=== PATIENT | male | born 1990 | race Caucasian/White ===

== ENCOUNTER 2022-07-20 08:28 | Emergency (ER) | payer BC ==
[2022-07-20] MEDS: diphenhydrAMINE 50 MG/ML SDV IVPUSH ONE (08:40)
[2022-07-20] MEDS: methylPREDNISolone Sodium Succinate 125 MG/2 ML SDV IVPUSH SCH (08:45)
[2022-07-20 09:21] VITALS: BP 96/59; PULSE 89
[2022-07-20] MEDS: Sodium Chloride 0.9% 1,000 ML IV SCH (09:30)
== END 2022-07-20 10:32 | disposition home or self-care (01) ==
LOC: CC.ED 08:28
DX: L29.9 Pruritus, unspecified (principal); T36.1X5A Adverse effect of cephalosporins and other beta-lactam antibiotics, initial encounter; Z91.012 Allergy to eggs; Z88.0 Allergy status to penicillin; Z88.1 Allergy status to other antibiotic agents; Z91.048 Other nonmedicinal substance allergy status
CPT/HCPCS: 96361; 96374; 96375; 99283; 99283-25; J1200; J2930; J7030